=== PATIENT | female | born 1980 | race Caucasian/White ===

== ENCOUNTER 2018-01-24 18:15 | Emergency (ER) | payer BC, OTHER | END 2018-01-24 19:25 | disposition home or self-care (01) | LOC: ER 18:15 | DX: R60.0 Localized edema (principal); E66.3 Overweight; Z68.41 Body mass index [BMI] 40.0-44.9, adult; Z90.49 Acquired absence of other specified parts of digestive tract | CPT/HCPCS: 93970; 99284 ==

== ENCOUNTER → 2018-03-15 | Outpatient (CLI) | payer BC, OTHER ==
[2018-03-15] MEDS: GADOBUTROL 10 MMOL/10 ML VIAL IV (11:04)
== END | disposition home or self-care (01) ==
LOC: KCIC MRI 09:37
DX: H90.5 Unspecified sensorineural hearing loss (principal); E66.3 Overweight; Z90.49 Acquired absence of other specified parts of digestive tract; Z68.41 Body mass index [BMI] 40.0-44.9, adult
CPT/HCPCS: 70553; A9585

== ENCOUNTER 2018-05-25 18:41 | Emergency (ER) | payer BC, OTHER ==
[~2018-05-25] VITALS: Ht 165.1 cm; Wt 115.7 kg
[~2018-05-25 18:41] MED LIST: ASPI-630 PO; LEVO25TA4 PO
[2018-05-25 19:05] VITALS: BP 137/84
[2018-05-25] MEDS ORDERED: DIPHTH,PERTUSS(ACELL),TET TOX 0.5 ML DISP.SYRIN. VAX IM ONE (19:15)
[2018-05-25] MEDS ORDERED: SULF1TAB24 PO (19:15)
--- NOTE | 2018-05-25 19:15 | PHYS DOC ---
Past Medical History Past Medical History: No Pertinent History Past Surgical History: Cholecystectomy, Tonsillectomy Additional Past Surgical Histo: Bilateral feet, bilateral patellas Alcohol Use: Occasionally Drug Use: None Adult General Chief Complaint Chief Complaint: LOWER EXT PAIN [facility] HPI Patient is a 37 year old female whom presents to the ED complaining of puncture wound to right calf times one hour ago. Patient states that she was using a sewing needle and it dropped down and she went to catch it but it stabbing her in the leg. Describes the pain as sharp. Rates the pain as 2 out of 10. States the needle came out in its entirety. States that she was bleeding a lot so she put a dressing on it and the bleeding stopped. Denies difficulty walking, paresthesias, fever, rash, weakness, dizziness, chest pain or shortness of breath. Review of Systems Review of Systems Constitutional: Denies fever or chills [] Eyes: Denies change in visual acuity, redness, or eye pain [] HENT: Denies nasal congestion or sore throat [] Respiratory: Denies cough or shortness of breath [] Cardiovascular: No additional information not addressed in HPI [] GI: Denies abdominal pain, nausea, vomiting, bloody stools or diarrhea [] : Denies dysuria or hematuria [] Musculoskeletal: Denies back pain or joint pain [] Integument: Denies rash or skin lesions [] Neurologic: Denies headache, focal weakness or sensory changes [] All other systems were reviewed and found to be within normal limits, except as documented in this note. Allergies Allergies Allergies Coded Allergies Type Severity Reaction Last Updated Verified No Known Drug Allergies 01/24/18 No Physical Exam Physical Exam Constitutional: Well developed, well nourished, no acute distress, non-toxic appearance. [] HENT: Normocephalic, atraumatic Skin: Warm, dry, no erythema, no rash. [] Back: No tenderness, no CVA tenderness. [] Extremities: pinpoint puncture wound to right medial proximal calf. No bony tenderness, no cyanosis, no clubbing, ROM intact, no edema. [] Neurologic: Alert and oriented X 3, normal motor function, normal sensory function, no focal deficits noted. [] Psychologic: Affect normal, judgement normal, mood normal. [] EKG EKG [] Radiology/Procedures Radiology/Procedures [] Course & Med Decision Making Course & Med Decision Making Pertinent Labs and Imaging studies reviewed. (See chart for details) []Bleeding controlled in the ED. Closely approximated but no full closure with a steri strip. Will discharge with short course of antibiotics as patient is worried about an infection. Tetanus UTD. Discussed wound care and follow-up for reevaluation in 3 days. Provided contact information/education. Discussed reasons to return to the ED. Patient understands and agrees with plan. Dragon Disclaimer Dragon Disclaimer This electronic medical record was generated, in whole or in part, using a voice recognition dictation system. Departure Departure Impression: Primary Impression: Puncture wound Disposition: HOME, SELF-CARE Condition: IMPROVED Referrals: RAIN REYEZ MD (PCP) Patient Instructions: Puncture Wound Scripts Sulfamethoxazole/Trimethoprim (BACTRIM DS TABLET) 1 Each Tablet 1 TAB PO BID for 7 Days, #14 TAB Prov: SAHNE HUI 05/25/18 SHANE HUI May 25, 2018 19:15
== END 2018-05-25 19:30 | disposition home or self-care (01) ==
LOC: ER 18:41
DX: S81.831A Puncture wound without foreign body, right lower leg, initial encounter (principal); Z90.49 Acquired absence of other specified parts of digestive tract; Z90.89 Acquired absence of other organs; W26.8XXA Contact with other sharp object(s), not elsewhere classified, initial encounter; Y93.89 Activity, other specified; Y92.89 Other specified places as the place of occurrence of the external cause; Y99.8 Other external cause status
CPT/HCPCS: 90471; 90715; 99283

== ENCOUNTER → 2019-11-07 | Outpatient (CLI) | payer BC, OTHER ==
[~2019-11-07] MED LIST changes: +SULF1TAB24 PO
--- NOTE | 2019-11-07 10:51 | KCIC ---
Examination: CT HEAD WO CONTRAST History: Headaches and dizziness for months Comparison/Correlation: MRI brain without contrast 03/15/2018 Findings: Axial images of the head were obtained without contrast. Ventricles are normal size. No intracranial hemorrhage, midline shift or mass effect. Bony structures are unremarkable. Orbits are unremarkable. Impression: Normal CT head without contrast. RS Compliance Statement: One or more of the following individualized dose reduction techniques were utilized for this examination: 1. Automated exposure control 2. Adjustment of the mA and/or kV according to patient size 3. Use of iterative reconstruction technique Electronically signed by: Calvin Licea MD (11/07/2019 10:48 AM) [id number]
== END | disposition home or self-care (01) ==
LOC: KCIC CT 09:57
PROVIDERS: ATTEND Internal Medicine
DX: R51 Headache (principal)
CPT/HCPCS: 70450

== ENCOUNTER → 2020-08-06 | Outpatient (CLI) | payer BC, OTHER ==
[~2020-08-06] MED LIST changes: +IOHEXOL 240 MG/ML 50ML VIAL. PO ONE
--- NOTE | 2020-08-06 16:33 | RAD ---
CT scan of the abdomen and pelvis without IV contrast, for abdominal pain. TECHNIQUE: Contiguous axial CT images are obtained through the abdomen. Oral contrast was administere d. IV contrast was withheld. Sagittal and coronal reformations are evaluated. FINDINGS: Lung bases are clear. No significant osseous abnormalities are seen. There is diffuse fatty infiltration of the liver. There is been a prior cholecystectomy. No renal calculi are seen. No hydr onephrosis or hydroureter. Spleen, pancreas, and bilateral adrenal glands are grossly unremarkable. N o free or loculated fluid collections are seen in the abdomen or pelvis. 3.2 cm circumscribed right a dnexal mass is likely a normal follicular ovary, but could be better evaluated with pelvic ultrasound if clinically warranted. Urinary bladder is decompressed but grossly unremarkable. There is inhomoge neous opacification of large and small bowel with no gross abnormalities identified. The appendix is normal. No suspicious mesenteric, retroperitoneal, or inguinal adenopathy is seen. IMPRESSION: 1. Diffuse fatty infiltration of liver. 2. Prior cholecystectomy. 3. 3.2 cm circumscribed right adnexal mass which most likely represents normal follicular ovary, but is not well evaluated with this modality. If clinically warranted, consider further evaluation with p elvic ultrasound. 4. Normal appendix. PQRS Compliance Statement: One or more of the following individualized dose reduction techniques were utilized for this examinat ion: 1. Automated exposure control 2. Adjustment of the mA and/or kV according to patient size 3. Use of iterative reconstruction technique Electronically signed by: Edgar Winslow MD (08/06/2020 4:31 PM) [id number]
== END ==
LOC: CT 08:32
PROVIDERS: ATTEND Internal Medicine
DX: K76.0 Fatty (change of) liver, not elsewhere classified (principal); Z90.49 Acquired absence of other specified parts of digestive tract
CPT/HCPCS: 74176

== ENCOUNTER → 2021-11-21 | Outpatient (CLI) | payer BC ==
[2021-11-13 11:00] VITALS: BP 110/62
[~2021-11-21] MED LIST changes: +CYCL10TA19 PO; +DESO1TAB PO; +DEXA4TAB PO; +DEXAMETHASONE PRES.FREE 10 MG/ML VIAL. ONE; +ESCITALOPRAM OX10 MG PO; +FENT1PAT17 TD; +GABA-585 PO; +IBUP-1007 PO; +IOHEXOL 180 MG/ML 10 ML VIAL. ONE; -IOHEXOL 240 MG/ML 50ML VIAL. PO ONE; +TIZA-75 PO; +TRIA1TAB3 PO
--- NOTE | 2021-11-21 13:20 | PDOC1 ---
INITIAL PAIN CONSULT DATE OF SERVICE: DOS: DATE: 11/21/21 TIME: 13:15 CHIEF COMPLAINT: Chief Complaint: Low back and right lower extremity pain HISTORY OF PRESENT ILLNESS: 41-year-old female presents history of pain in the low back and right lower extremity for about 3 months not the result of any specific injury or accident that she is aware begetting worse with time and now radiating from the low back into the posterior gluteus posterior right thigh posterior right calf into the foot involving all the toes and sole of the foot patient reports it is worse with walking and standing changing positions wakes her from sleep least 3-4 times a night does not affect her bowel bladder control but does affect ability to walk although does not use any assistive devices to ambulate. Patient had chiropractic treatment as well as acupuncture which was not helpful she doing stretching strength exercise on her own also taking tizanidine as well as had a fentanyl patch overall none of these things have helped had dexamethasone tablets as well which were not helpful long-term patient rates her disability rating 0-10 10 being the worst is a 10 with family home responsibilities recreation social activity occupation sexual behavior 8 with self-care and he would like support activities specially sleeping. Patient did have a lumbar MRI scan which we discussed with her today showing L4-5 broad-based posterior central disc retrusion with right foraminal disc protrusion osteophyte complex moderate right and mild left foraminal stenosis with abutment of the exiting right L4 nerve root with moderate central canal stenosis as well. Patient reports no loss of motor function with significant fatigability of the right leg and feels unstable but she is not had any actual stumbling or falls. Patient reports no bowel or bladder incontinence. PAST MEDICAL HISTORY: PMH: Hearing loss, irritable bowel syndrome PREVIOUS SURGERIES: Past Surgical Hx: Cholecystectomy, bilateral knee surgeries, bilateral foot surgery, tonsillectomy CURRENT MEDICATIONS: Current Meds: Active Scripts Medications Dose Route/Sig Max Daily Dose Days Date Category Aspirin 81 Mg Tab.chew 1 Tab PO DAILY 11/21/21 Reported Dexamethasone 4 Mg Tablet 4 Mg PO TID 7 11/13/21 Rx FENTANYL 50mcg/hr (Fentanyl) 1 Each Patch.td72 1 Patch TD Q3DAYS 15 11/13/21 Rx Tizanidine Hcl 4 Mg Tablet 4 Mg PO Q4HRS 30 11/13/21 Rx Enskyce (Desogestrel-Ethinyl Estradiol) 1 Each Tablet 1 Tab PO DAILY 28 11/11/21 Reported Triamterene-Hctz 37.5-25 Mg Tb (Triamterene/Hydrochlorothiazid) 1 Each Tablet 1 Tab PO DAILY 11/11/21 Reported Escitalopram Oxalate 10 Mg Tablet 1 Tab PO DAILY 11/11/21 Reported Levothyroxine Sodium 25 Mcg Tablet 50 Mcg PO DAILYAC 03/15/18 Reported ALLERGIES; Allergies: Coded Allergies: No Known Drug Allergies (Unverified , 01/24/18) FAMILY HISTORY: Family Hx: Depression, arthritis, heart disease, diabetes SOCIAL HISTORY: Social Hx: Patient is under alcohol does not smoke or use any illegal licit recreational drugs is lives with her spouse has 3 children living at home lives locally in [facility]. REVIEW OF SYSTEMS: ROS: Positive for those items mentioned in history of present illness, all systems are reviewed, otherwise negative ,and are complete full and well-documented on patient's chart. PHYSICAL EXAM: VS: Blood pressure is 164/99 pulse 85 respirations 18 temperature is 98.7 F height 5 feet 5 inches weight is 248 pounds. PE: PHYSICAL EXAMINATION: GENERAL: The patient is awake, alert, oriented, appropriate, very pleasant in demeanor HEENT: Shows normocephalic, atraumatic. Extraocular movements are intact and symmetrical. Oral cavity: Mucous membranes moist and pink. Dentition is intact. NECK: Shows anterior throat supple without palpable lymphadenopathy noted. Swallow reflex symmetrical. CHEST: Shows normal on inspection. Breath sounds are clear bilaterally, distant but no rales rhonchi or wheezes auscultated. HEART: Shows S1, S2 clear. No murmurs auscultated. ABDOMEN: Soft, nontender, nondistended. No palpable organomegaly is noted. BACK: Shows spine grossly in the midline. Normal-appearing cervical lordotic curvature. There is slightly increased thoracic kyphosis, some minor flattening of the lumbar lordotic curvature. Lumbar paraspinous muscles show symmetrical on inspection, on palpation shows some moderate tenderness diffusely throughout the upper, middle and lower distribution of the paraspinous muscles bilaterally and also into the lower thoracic paraspinous musculature, firm and tender, but without specific trigger points, without radiation of pain. The patient has good rotational motion of the lumbar spine, both laterally as well as extension and flexion without significant difficulty. No tenderness over the spinous pr ocesses, sacrum or sacroiliac regions. EXTREMITIES: Lower extremities show deep tendon reflexes 2+ in the patellar and tendo calcaneus tendons. Motor exam is 4 on a scale of 5 with right dorsiflexion, extension, quadriceps and hamstring flexion and 5/5 on the left. Peripheral pulses are 1+ posterior tibial. No peripheral edema is noted bilaterally. Lower extremities are warm and dry to touch, equal in color and appearance. Straight leg raise noted to be [] on the right about 45 degrees, left side is negative. Gaenslen's and Alex's maneuvers are negative bilaterally. The patient is able to stand, stand on her toes without s ignificant difficulty or loss of balance, walks with a slight favoring gait does appear fair the right lower extremity mildly but not use any assistive device such as canes or walkers to ambulate. SKIN: Shows warm and dry, good turgor. No edema. No sores, rashes or bruising throughout. IMPRESSION: Impression: 41-year-old female with proximate 3-month history low back right lower extremity pain and radicular fashion. MRI scan lumbar spine as noted Hearing loss Interval bowel syndrome Plan: Options were discussed with patient including conservative measures physical therapies interventional techniques. Patient like to pursue interventional techniques. We discussed a lumbar epidural steroid injection prescription as well as describe the procedure. Risks were discussed including but not limited to: Bleeding, infection, possibility of epidural hematoma and subsequent neurological compromise, dural puncture, headaches, spinal cord and/or nerve damage, side effects of steroid medication, and poor results regarding pain control. Patient understands and wished to proceed. Patient will return to the clinic in approximately 2 weeks for follow-up, was counseled as to return appointment, activity level, and side effect to be aware of. Procedure is lumbar epidural steroid injection under local anesthetic using sterile prep and drape at the L4-5 level using C-arm fluoroscopic guidance in both AP and lateral views medications injected is 20 mg dexamethasone +10mL preservative-free normal saline and 2 mL contrast- condition at discharge is stable patient tolerated procedure well had no complications. MCKENNA SAUCEDO MD Nov 21, 2021 13:20
--- NOTE | 2021-11-21 13:21 | PDOC4 ---
Procedure Note: ICD 10 Code: ICD 10 Code: M54.16 M51.36 M 48.06 Procedure Note: Patient was consented for lumbar epidural steroid injection with fluoroscopic guidance. Risks were discussed including but not limited to: Bleeding, infection, possibility of epidural hematoma and subsequent neurological compromise, dural puncture, headaches, spinal cord and/or nerve damage, side effects of steroid medication, and poor results regarding pain control. Patient understands and wished to proceed. Procedure is lumbar epidural steroid injection under local anesthetic using yamileth rile prep and drape at the L4-5 level using C-arm fluoroscopic guidance in both AP and lateral views medications injected is 20 mg dexamethasone +10mL preservative-free normal saline and 2 mL contrast- condition at discharge is stable patient tolerated procedure well had no complications. MCKENNA SAUCEDO MD Nov 21, 2021 13:20
== END | disposition home or self-care (01) ==
LOC: PNCL 09:34
PROVIDERS: ATTEND Internal Medicine
DX: M51.16 Intervertebral disc disorders with radiculopathy, lumbar region (principal); M48.061 Spinal stenosis, lumbar region without neurogenic claudication; E66.9 Obesity, unspecified; E03.9 Hypothyroidism, unspecified; F41.9 Anxiety disorder, unspecified; Z90.49 Acquired absence of other specified parts of digestive tract; Z98.890 Other specified postprocedural states; Z79.899 Other long term (current) drug therapy; Z72.89 Other problems related to lifestyle
CPT/HCPCS: 62323; G0463; J1100; Q9965

== ENCOUNTER → 2021-12-10 | Outpatient (CLI) | payer BC ==
[2021-11-13 11:00] VITALS: BP 110/62
[~2021-12-10] MED LIST changes: -DEXAMETHASONE PRES.FREE 10 MG/ML VIAL. ONE; -IOHEXOL 180 MG/ML 10 ML VIAL. ONE
--- NOTE | 2021-12-10 09:10 | PDOC ---
Progress Note - Pain Clinic Date of Service: DOS: DATE: 12/10/21 TIME: 09:07 Diagnosis: Dx: Lumbar radiculopathy lumbar degenerative disease and lumbar spinal stenosis History or Present Illness: HPI: 41-year-old female returns for follow-up status post lumbar epidural steroid injection x1. Patient reports only minimal decrease in pain in the right lower extremity after first injection patient reports still significant pain in her low back right lower extremity posterior gluteus lateral thigh anterior thigh medial thigh medial lower leg into the calf at the foot and the lateral aspect of the toes on the right side with some numbness in the toes except for the big toe patient report is sharp and tight in the back shooting the leg tingling burning cramping stabbing can be radiating constant unbearable with weightbearing. Patient reports he is seeing chiropractic twice weekly which she feels is helpful as well but only minimally patient rates her pain as a 10 on scale 10 is worse over the past week 8 on average 7 at its least and is a 7 today. Patient reports better with sitting or laying down generally does not awaken her from sleep most nights but some nights it well if she lays on her right side. Patient reports no bowel or bladder incontinence but some decreased sense of urgency with urination only. Patient continues with stretching strength exercises as well as walking as tolerated although it is becoming more difficult with the pain at a higher level recently. Physical Exam: VS: Blood pressure is 131/84 pulse 98 respiration 16 temperature 98.0 F height is 5 feet 5 inches weight is 250 pounds. PE: PHYSICAL EXAMINATION: GENERAL: The patient is awake, alert, oriented, appropriate, very pleasant in demeanor HEENT: Shows normocephalic, atraumatic. Extraocular movements are intact and symmetrical. Oral cavity: Mucous membranes moist and pink. Dentition is intact. NECK: Shows anterior throat supple without palpable lymphadenopathy noted. Swallow reflex symmetrical. CHEST: Shows normal on inspection. Breath sounds are clear bilaterally. HEART: Shows S1, S2 clear. No murmurs auscultated. ABDOMEN: Soft, nontender, nondistended. No palpable organomegaly is noted. BACK: Shows spine grossly in the midline. Normal-appearing cervical lordotic curvature. There is slightly increased thoracic kyphosis, some minor flattening of the lumbar lordotic curvature. Lumbar paraspinous muscles show symmetrical on inspection, on palpation shows some moderate tenderness diffusely throughout the upper, middle and lower distribution of the paraspinous muscles, but without specific trigger points, without radiation of pain. The patient has good rotational motion of the lumbar spine, both laterally as well as extension and flexion without significant difficulty. EXTREMITIES: Lower extremities show deep tendon reflexes 2+ in the patellar and tendo calcaneus tendons. Motor exam is 4 on a scale of 5 with right dorsiflexion, extension, quadriceps and hamstring flexion and 5/5 on the left. Peripheral pulses are 1+ posterior tibial. No peripheral edema is noted bilaterally. Lower extremities are warm and dry. SKIN: Shows warm and dry, good turgor. No edema. No sores, rashes or bruising throughout. Procedure: Procedure: Options discussed with the patient. Patient's old chart was reviewed as her current medication regimen updated current review of systems updated today as well. We will prescribe Medrol Dosepak for the patient patient was given instructions well side effects beware with the medication. Patient will follow up on the ninth as scheduled as she must wait ambulatory 30 days per insurance restrictions prior to additional treatment. Patient continue with stretching strength exercises on her own as well as chiropractic treatment as scheduled in the meantime. Medication Injected: Med Injected: None Condition at Discharge: Condition at Discharge: Condition at discharge is stable. MCKENNA SAUCEDO MD Dec 10, 2021 09:10
== END | disposition home or self-care (01) ==
LOC: PNCL 08:12
PROVIDERS: ATTEND Anesthesiology
DX: M51.16 Intervertebral disc disorders with radiculopathy, lumbar region (principal); M48.061 Spinal stenosis, lumbar region without neurogenic claudication; E66.9 Obesity, unspecified; E03.9 Hypothyroidism, unspecified; F41.9 Anxiety disorder, unspecified; Z90.49 Acquired absence of other specified parts of digestive tract; Z98.890 Other specified postprocedural states; Z79.899 Other long term (current) drug therapy
CPT/HCPCS: 99212; G0463

== ENCOUNTER → 2021-12-23 | Outpatient (CLI) | payer BC ==
[2021-11-13 11:00] VITALS: BP 110/62
[~2021-12-23] MED LIST changes: +DEXAMETHASONE PRES.FREE 10 MG/ML VIAL. ONE; +IOHEXOL 180 MG/ML 10 ML VIAL. ONE
--- NOTE | 2021-12-23 09:20 | PDOC ---
Progress Note - Pain Clinic Date of Service: DOS: DATE: 12/23/21 TIME: 09:17 Diagnosis: Dx: Lumbar radiculopathy with lumbar degenerative disease and lumbar spinal stenosis History or Present Illness: HPI: 41-year-old female returns for follow-up status post lumbar epidural steroid injection x1. Patient done very well after the first injection 75% improvement but the pain is returning due to restrictions with her insurance provider was unable to receive the injection until today we did try Medrol Dosepak which helped mildly but caused some significant emotional side effects and was discontinued early patient reports pain is still in the low back and right lower extremity posterior gluteus lateral thigh anterior thigh medial thigh medial lower legs with some cramping in the back which is new intermittently with walking standing and changing positions patient reports the cramping is better with sitting or resting also using some heat application to the low back which helps the cramps as well patient rates her pain as a 10 on scale 10 is worse over the past week 8 on average 8 at its least and is a patient scribes sharp and tight shooting below back and right lower extremity tingling burning and no new cramping in the back as well patient reported can be radiating constant as well. Patient reports no loss of motor function no bowel or bladder incontinence. Physical Exam: VS: Blood pressure is 134/94 pulse 94 respiration 16 temperature 98.0 F weight is 255 pounds. PE: PHYSICAL EXAMINATION: GENERAL: The patient is awake, alert, oriented, appropriate, very pleasant in demeanor HEENT: Shows normocephalic, atraumatic. Extraocular movements are intact and symmetrical. Oral cavity: Mucous membranes moist and pink. Dentition is intact. NECK: Shows anterior throat supple without palpable lymphadenopathy noted. Swallow reflex symmetrical. CHEST: Shows normal on inspection. Breath sounds are clear bilaterally. HEART: Shows S1, S2 clear. No murmurs auscultated. ABDOMEN: Soft, nontender, nondistended. No palpable organomegaly is noted. BACK: Shows spine grossly in the midline. Normal-appearing cervical lordotic curvature. There is slightly increased thoracic kyphosis, some minor flattening of the lumbar lordotic curvature. Lumbar paraspinous muscles show symmetrical on inspection, on palpation shows some moderate tenderness diffusely throughout the upper, middle and lower distribution of the paraspinous muscles but without specific trigger points, without radiation of pain. The patient has good rotational motion of the lumbar spine, both laterally as well as extension and flexion without significant difficulty. EXTREMITIES: Lower extremities show deep tendon reflexes 2+ in the patellar and tendo calcaneus tendons. Motor exam is 4 on a scale of 5 with right dorsiflexion, extension, quadriceps and hamstring flexion and 5/5 on the left. Peripheral pulses are 1+ posterior tibial. No peripheral edema is noted bilaterally. Lower extremities are warm and dry to touch, equal in color and appearance. SKIN: Shows warm and dry, good turgor. No edema. No sores, rashes or bruising throughout. Procedure: Procedure: Options discussed with patient. Patient's old chart was use her current medication regimen updated current review of systems updated today as well. We will proceed with a lumbar epidural steroid injection today with fluoroscopic guidance. Risks were discussed including but not limited to: Bleeding, infection, possibility of epidural hematoma and subsequent neurological compromise, dural puncture, headaches, spinal cord and/or nerve damage, side effects of steroid medication, and poor results regarding pain control. Patient understands and wished to proceed. Patient return to clinic in approximate 4 weeks for follow-up, was counseled as to return appointment, activity level, and side effects to be aware of. Medication Injected: Med Injected: Procedure is lumbar epidural steroid injection under local anesthetic using sterile prep and drape at the L4-5 level using C-arm fluoroscopic guidance in both AP and lateral views medications injected is 20 mg dexamethasone +10mL preservative-free normal saline and 2 mL contrast- condition at discharge is stable patient tolerated procedure well had no complications. Condition at Discharge: Condition at Discharge: Condition at discharge stable, paced tolerated the procedure well had no complications. MCKENNA SAUCEDO MD December 23, 2021 09:20
--- NOTE | 2021-12-23 09:21 | PDOC4 ---
Procedure Note: ICD 10 Code: ICD 10 Code: M54.16 M51.36 M48.06 Procedure Note: Patient was consented for lumbar epidural steroid injection with fluoroscopic guidance. Risks were discussed including but not limited to: Bleeding, infection, possibility of epidural hematoma and subsequent neurological compromise, dural puncture, headaches, spinal cord and/or nerve damage, side effects of steroid medication, and poor results regarding pain control. Patient understands and wished to proceed. Procedure is lumbar epidural steroid injection under local anesthetic using ster ile prep and drape at the L4-5 level using C-arm fluoroscopic guidance in both AP and lateral views medications injected is 20 mg dexamethasone +10mL preservative-free normal saline and 2 mL contrast- condition at discharge is stable patient tolerated procedure well had no complications. MCKENNA SAUCEDO MD December 23, 2021 09:21
== END | disposition home or self-care (01) ==
LOC: PNCL 08:11
PROVIDERS: ATTEND Anesthesiology
DX: M51.16 Intervertebral disc disorders with radiculopathy, lumbar region (principal); M48.061 Spinal stenosis, lumbar region without neurogenic claudication; E66.9 Obesity, unspecified; E03.9 Hypothyroidism, unspecified; F41.9 Anxiety disorder, unspecified; Z90.49 Acquired absence of other specified parts of digestive tract; Z98.890 Other specified postprocedural states; Z79.82 Long term (current) use of aspirin; Z79.899 Other long term (current) drug therapy; Z72.89 Other problems related to lifestyle
CPT/HCPCS: 62323; J1100; Q9965